=== PATIENT | male | born 1940 | race Caucasian/White ===

== ENCOUNTER 2018-11-01 13:54 | Outpatient (CLI) | payer MEDICARE, BC ==
[2018-11-01 14:23] LABS: CALCIUM 8.9 mg/dl (8.5-10.1); CARBON DIOXIDE 28.2 mEq/L (21-32); CREATININE 1.56 mg/dl (0.80-1.30)
== END 2018-11-01 13:55 | disposition home or self-care (01) | DRG 293 ==
LOC: CONVCARE 13:54
PROVIDERS: ATTEND Internal Medicine Cardiovascular Disease
DX: I50.9 Heart failure, unspecified (principal)
CPT/HCPCS: 36415; 71046; 80048; 83880

== ENCOUNTER 2018-11-06 21:23 | Observation (INO) | payer MEDICARE, BC ==
[2018-11-06] MEDS ORDERED: MORPHINE SULFATE 10 MG/ML SOL IV PRN (21:25)
[2018-11-06] MEDS ORDERED: SODIUM CHLORIDE 0.9% FLUSH 10 ML SOL IV PRN (21:25)
[2018-11-06] MEDS ORDERED: ASPIRIN 81 MG CHEWABLE CTB PO STA (21:25)
[2018-11-06] MEDS ORDERED: ASPIRIN 81 MG CHEWABLE CTB ONE (21:35)
[2018-11-06 21:36] LABS: BASOPHILS % (AUTO) 1 % (0-3); EOSINOPHILS % (AUTO) 1 % (0-9); HEMATOCRIT 46 % (39-53); HEMOGLOBIN 14.9 gm/dl (13.5-17.7); LYMPHOCYTES % (AUTO) 10.7 % (10-50); MEAN CORPUSCULAR HEMOGLOBIN 31.5 pg (27.0-32.0); MEAN CORPUSCULAR HGB CONC 32.2 gm/dl (32.0-36.0); MEAN CORPUSCULAR VOLUME 98 fL (80-100); MONOCYTES % (AUTO) 10.6 % (0-12); NEUTROPHILS % (AUTO) 76.9 % (37-80)
[2018-11-06] MEDS ORDERED: MORPHINE SULFATE 10 MG/ML SOL ONE (21:40)
[2018-11-06] MEDS ORDERED: NITROGLYCERIN 0.4 MG TAB SL ONE (21:40)
[2018-11-06] MEDS: NITROGLYCERIN 0.4 MG TAB SL PRN ×3 (21:41→21:56)
[2018-11-06 21:45] LABS: INR 1.21 (0.86-1.12)
[2018-11-06 21:54] LABS: ALBUMIN 3.6 gm/dl (3.4-5.0); BILIRUBIN,TOTAL 0.4 mg/dl (0.2-1.0); CALCIUM 9.1 mg/dl (8.5-10.1); CARBON DIOXIDE 29.3 mEq/L (21-32); CREATININE 1.35 mg/dl (0.80-1.30); POTASSIUM 4.3 mMol/L (3.5-5.1); TOTAL PROTEIN 7.4 gm/dl (6.4-8.2); TROP I 0.063 ng/ml (0.000-0.056)
[2018-11-06] MEDS ORDERED: FUROSEMIDE 100 MG SOL IV ONE (22:17)
[2018-11-06] MEDS ORDERED: ALUMINUM/MAGNESIUM 30 ML SUS PO PRN (22:23)
[2018-11-06] MEDS ORDERED: LEVODOPA PO PRN (22:24)
[2018-11-06] MEDS ORDERED: CARBIDOPA PO PRN (22:24)
[2018-11-07 01:17] VITALS: BP 125/78; PULSE 56; RESP 18; TEMP 97.7
[2018-11-07] MEDS ORDERED: DEXTROSE IV PRN (02:27)
[2018-11-07] MEDS ORDERED: HEPARIN SODIUM 5000 U/ML 25,000 U in DEXTROSE 250 ML 250 ML IV PRN (02:27)
[2018-11-07] MEDS ORDERED: SODIUM NITROPRUSSIDE IV PRN (02:27)
[2018-11-07] MEDS ORDERED: HEPARIN SODIUM 5000 U/ML SOL ONE (03:04)
[2018-11-07] MEDS ORDERED: HEPARIN SODIUM 5000 U/ML SOL IV ONE (03:15)
[2018-11-07 03:25] VITALS: O2SAT 96
[2018-11-07] MEDS ORDERED: Non-Formulary Medication MISC (Carbidopa/Levodopa 25/100 2 TAB) PO SCH (06:00)
[2018-11-07] MEDS ORDERED: Non-Formulary Medication MISC (Carbidopa/Levodopa 25/100 1 TAB) PO SCH (09:00)
[2018-11-07] MEDS ORDERED: ASPIRIN EC 81 MG PO SCH (09:00)
[2018-11-07] MEDS ORDERED: METOPROLOL TARTRATE 25 MG PO SCH ×2 (09:00)
== END 2018-11-07 03:20 | disposition short-term general hospital (02) | DRG 313 ==
LOC: ED 21:23 → ACUTE CARE 22:20
PROVIDERS: ADMIT Family Medicine; ATTEND Family Medicine
DX: R07.9 Chest pain, unspecified (principal); R79.89 Other specified abnormal findings of blood chemistry; I50.9 Heart failure, unspecified; R06.02 Shortness of breath; R63.5 Abnormal weight gain; R60.0 Localized edema; I35.0 Nonrheumatic aortic (valve) stenosis; I48.91 Unspecified atrial fibrillation
CPT/HCPCS: 36415; 71045; 80053; 83036; 83880; 84484; 85025; 85610; 93005; 93012; 94762; 96374; 99217; 99220; 99283; 99284; J1644; J1940; J2270; A9270-GY

== ENCOUNTER 2018-11-16 15:44 | Emergency (ER) | payer MEDICARE, BC ==
[2018-11-16 16:02] VITALS: RESP 18; TEMP 97.9; O2SAT 98
[2018-11-16 17:38] LABS: BASOPHILS % (AUTO) 1 % (0-3); EOSINOPHILS % (AUTO) 3 % (0-9); HEMATOCRIT 43 % (39-53); HEMOGLOBIN 14.1 gm/dl (13.5-17.7); LYMPHOCYTES % (AUTO) 16.2 % (10-50); MEAN CORPUSCULAR HEMOGLOBIN 32.1 pg (27.0-32.0); MEAN CORPUSCULAR HGB CONC 32.5 gm/dl (32.0-36.0); MONOCYTES % (AUTO) 12.7 % (0-12); NEUTROPHILS % (AUTO) 67.4 % (37-80)
[2018-11-16 17:39] LABS: MEAN CORPUSCULAR VOLUME 99 fL (80-100)
[2018-11-16 17:46] LABS: CALCIUM 8.8 mg/dl (8.5-10.1); CREATININE 1.19 mg/dl (0.80-1.30); POTASSIUM 4.2 mMol/L (3.5-5.1)
[2018-11-16 17:47] LABS: CARBON DIOXIDE 30.3 mEq/L (21-32)
[2018-11-16 18:24] VITALS: BP 128/60; PULSE 60
== END 2018-11-16 18:17 | disposition home or self-care (01) | DRG 310 ==
LOC: ED 15:44
DX: I48.91 Unspecified atrial fibrillation (principal); E78.5 Hyperlipidemia, unspecified; I50.9 Heart failure, unspecified
CPT/HCPCS: 36415; 80048; 83880; 85025; 99283

== ENCOUNTER 2019-01-10 11:25 | Outpatient (CLI) | payer MEDICARE, BC | END 2019-01-10 11:26 | disposition home or self-care (01) | LOC: CONVCARE 11:26 ==